=== PATIENT | male | born 1995 | race Caucasian/White ===

== ENCOUNTER 2018-07-26 14:22 | Emergency (ER) | payer OTHER ==
[~2018-07-26] VITALS: Ht 167.6 cm; Wt 63.0 kg
[~2018-07-26 14:22] MED LIST: PRED20TA PO
[2018-07-26] MEDS ORDERED: LORazepam 2 mg/ml vial IV ONE (14:50)
[2018-07-26] MEDS ORDERED: levetiracetam inj 1,000 MG in normal saline 100ml IV soln 90 ML IV ONE (14:55)
--- NOTE | 2018-07-26 15:00 | NUR ---
THIS AM DESTINY SAW PT HAVE A SEIZURE AT 0830 IN BED, CONFUSED TRYING TO GET UP, FOAMING FROM MOUTH, POSDICAL 20MINUTES, INCONTINENT OF URINE.
--- NOTE | 2018-07-26 15:02 | NUR ---
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
[2018-07-26 15:20] LABS: BASOPHILS % (AUTO) 0.2 % (0-1); EOSINOPHILS % (AUTO) 0.1 % (0-6); HEMOGLOBIN 14.6 g/dl (14.0-17.9); LYMPHOCYTES % (AUTO) 6.3 % (21-51); MEAN CORPUSCULAR HEMOGLOBIN 30.3 PG (27.0-31.0); MEAN PLATELET VOLUME 7.7 FL (7.4-10.4); MONOCYTES # (AUTO) 1.3 X10'3 (0-0.9); MONOCYTES % (AUTO) 7.8 % (2-12); NEUTROPHILS % (AUTO) 85.6 % (42-75); PLATELET COUNT 312 X10'3 (140-440); RED BLOOD COUNT 4.84 X10'6 (4.70-6.10); RED CELL DISTRIBUTION WIDTH 12.1 % (11.5-14.5); WHITE BLOOD COUNT 16.4 X10'3 (4.5-11.0)
[2018-07-26 15:34] LABS: ALANINE AMINOTRANSFERASE 23 U/L (12-78); ALBUMIN 4.1 G/DL (3.4-5.0); ALKALINE PHOSPHATASE 68 IU/L (46-116); ANION GAP 13 (8-16); ASPARTATE AMINO TRANSFERASE 23 U/L (10-37); BILIRUBIN,TOTAL 0.3 MG/DL (0.1-1.0); BLOOD UREA NITROGEN 16 MG/DL (7-18); BUN/CREATININE RATIO 9.6 (5.4-32.0); CALCIUM 9.1 MG/DL (8.5-10.1); CHLORIDE 100 MMOL/L (99-107); CREATININE 1.67 MG/DL (0.60-1.10); GLUCOSE 126 MG/DL (70-104); POTASSIUM 3.9 MMOL/L (3.5-5.1); SODIUM 136 MMOL/L (135-145); TOTAL CARBON DIOXIDE 22.8 MMOL/L (24-32); TOTAL PROTEIN 8.1 G/DL (6.4-8.2); eGFR 51 ML/MIN
[2018-07-26] MEDS ORDERED: normal saline 1000ML IV soln IVB ONE (15:50)
[2018-07-26 16:09] VITALS: BP 121/83
[2018-07-26] MEDS ORDERED: KEP500T PO (16:36)
[2018-07-26 17:11] LABS: CLARITY,URINE CLEAR (Clear); COLOR,URINE YELLOW (Yellow); GLUCOSE, URINE NEGATIVE (Neg); KETONES,URINE 15 mg/dl (Neg); LEUKOCYTE ESTERASE ,URINE NEGATIVE (Neg); NITRITES, URINE NEGATIVE (Neg); OCCULT BLOOD,URINE MODERATE (Neg); PROTEIN,URINE TRACE mg/dl (Neg); UROBILINOGEN,URINE 0.2 E.U/dL (0.2-1.0)
[2018-07-26 17:12] LABS: UA COLLECTION TYPE VOIDED
[2018-07-26 17:18] LABS: BACTERIA,URINE NONE SEEN /HPF (Neg); MUCUS STRANDS FEW /LPF (Neg); RBC,URINE 0-2 /HPF (0-2); SQUAMOUS EPITHELIAL CELL,UR FEW /LPF (FEW); WBC,URINE 0-4 /HPF (0-4)
[2018-07-26 17:24] LABS: URINE AMPHETAMINE SCREEN NEGATIVE (Neg); URINE BARBITUATE SCREEN NEGATIVE (Neg); URINE BENZODIAZEPINES SCREEN NEGATIVE (Neg); URINE CANNABINOID SCREEN POSITIVE (Neg); URINE COCAINE SCREEN NEGATIVE (Neg); URINE METHADONE SCREEN NEGATIVE (Neg); URINE OPIATE SCREEN NEGATIVE (Neg); URINE PHENCYCLIDINE SCREEN NEGATIVE (Neg)
== END 2018-07-26 17:01 | disposition home or self-care (01) ==
LOC: ER 14:23
DX: G40.909 Epilepsy, unspecified, not intractable, without status epilepticus (principal); F12.90 Cannabis use, unspecified, uncomplicated; Z79.899 Other long term (current) drug therapy; Z56.0 Unemployment, unspecified
CPT/HCPCS: 36415; 70450; 80053; 80305; 81001; 85025; 96365; 96375; 99284; J1953; J2060; J7030

== ENCOUNTER 2018-08-24 10:27 | Emergency (ER) | payer OTHER ==
[~2018-08-24] VITALS: Ht 177.8 cm; Wt 80.0 kg
[~2018-08-24 10:27] MED LIST changes: +KEP500T PO
[2018-08-24] MEDS ORDERED: normal saline 1000ML IV soln IVB ONE (10:40)
[2018-08-24 10:58] LABS: EOSINOPHILS # (AUTO) 0.1 X10'3 (0-0.9); MEAN CORPUSCULAR HEMOGLOBIN 30.5 PG (27.0-31.0)
[2018-08-24 11:03] VITALS: BP 166/81
[2018-08-24 11:08] LABS: ALANINE AMINOTRANSFERASE 18 U/L (12-78); ALBUMIN 4.7 G/DL (3.4-5.0); ALKALINE PHOSPHATASE 96 IU/L (46-116); ANION GAP 30 (8-16); ASPARTATE AMINO TRANSFERASE 24 U/L (10-37); BILIRUBIN,TOTAL 0.1 MG/DL (0.1-1.0); BLOOD UREA NITROGEN 19 MG/DL (7-18); BUN/CREATININE RATIO 14.4 (5.4-32.0); CALCIUM 9.6 MG/DL (8.5-10.1); CHLORIDE 104 MMOL/L (99-107); CREATININE 1.32 MG/DL (0.60-1.10); GLUCOSE 229 MG/DL (70-104); SODIUM 144 MMOL/L (135-145); TOTAL PROTEIN 9.2 G/DL (6.4-8.2); eGFR 67 ML/MIN
[2018-08-24 11:12] LABS: ETHANOL < 0.010 GM/DL (0.0-0.010); POTASSIUM 4.1 MMOL/L (3.5-5.1); TOTAL CARBON DIOXIDE 10.2 MMOL/L (24-32)
[2018-08-24 11:15] LABS: BASOPHILS # (AUTO) 0.3 X10'3 (0-0.2); BASOPHILS % (AUTO) 1.4 % (0-1); EOSINOPHILS % (AUTO) 0.5 % (0-6); HEMATOCRIT 50.2 % (42.0-52.0); HEMOGLOBIN 16.5 g/dl (14.0-17.9); LYMPHOCYTES # (AUTO) 2.9 X10'3 (1.1-4.8); LYMPHOCYTES % (AUTO) 12.7 % (21-51); MEAN CORPUSCULAR HGB CONC 32.8 g/dL (33.0-36.5); MEAN CORPUSCULAR VOLUME 92.9 FL (78-98); MEAN PLATELET VOLUME 8.8 FL (7.4-10.4); MONOCYTES # (AUTO) 1.2 X10'3 (0-0.9); NEUTROPHILS # (AUTO) 18.6 X10'3 (1.8-7.7); NEUTROPHILS % (AUTO) 80.4 % (42-75); PLATELET COUNT 412 X10'3 (140-440); RED CELL DISTRIBUTION WIDTH 11.8 % (11.5-14.5); WHITE BLOOD COUNT 23.1 X10'3 (4.5-11.0)
[2018-08-24 11:16] LABS: URINE AMPHETAMINE SCREEN NEGATIVE (Neg); URINE BARBITUATE SCREEN NEGATIVE (Neg); URINE BENZODIAZEPINES SCREEN NEGATIVE (Neg); URINE CANNABINOID SCREEN POSITIVE (Neg); URINE COCAINE SCREEN NEGATIVE (Neg); URINE METHADONE SCREEN NEGATIVE (Neg); URINE OPIATE SCREEN NEGATIVE (Neg); URINE PHENCYCLIDINE SCREEN NEGATIVE (Neg)
[2018-08-24] MEDS ORDERED: levetiracetam 250mg tablet PO ONE (12:10)
[2018-08-24] MEDS ORDERED: KEP500T PO ×2 (12:24→12:27)
== END 2018-08-24 14:04 | disposition home or self-care (01) ==
LOC: ER 10:28
DX: G40.909 Epilepsy, unspecified, not intractable, without status epilepticus (principal); F12.90 Cannabis use, unspecified, uncomplicated; Z56.0 Unemployment, unspecified
CPT/HCPCS: 36415; 71045; 80053; 80305; 80320; 85025; 96360; 99284; J7030

== ENCOUNTER 2019-03-11 20:02 | Emergency (ER) | payer SELFPAY ==
[~2019-03-11] VITALS: Ht 175.3 cm; Wt 68.2 kg
[~2019-03-11 20:02] MED LIST changes: -KEP500T PO
[2019-03-11] MEDS ORDERED: LORazepam 2 mg/ml vial IM ONE (20:45)
--- NOTE | 2019-03-11 20:47 | NUR ---
PT PULLED HIS IV OUT, DR FRY AT BEDSIDE. DR GR NOTIFIED OF PT PULLINGOUT IV, PER DR FRY IV NOT NEEDED AT THIS TIME.
[2019-03-11 20:52] LABS: BASOPHILS % (AUTO) 0.1 % (0-1); EOSINOPHILS # (AUTO) 0.1 X10'3 (0-0.9); EOSINOPHILS % (AUTO) 0.3 % (0-6); HEMATOCRIT 42.7 % (42.0-52.0); HEMOGLOBIN 14.4 g/dl (14.0-17.9); LYMPHOCYTES # (AUTO) 0.6 X10'3 (1.1-4.8); LYMPHOCYTES % (AUTO) 2.7 % (21-51); MEAN CORPUSCULAR HEMOGLOBIN 30.2 PG (27.0-31.0); MEAN CORPUSCULAR HGB CONC 33.7 g/dL (33.0-36.5); MEAN CORPUSCULAR VOLUME 89.7 FL (78-98); MEAN PLATELET VOLUME 7.9 FL (7.4-10.4); MONOCYTES # (AUTO) 1.1 X10'3 (0-0.9); MONOCYTES % (AUTO) 5.2 % (2-12); NEUTROPHILS # (AUTO) 19.8 X10'3 (1.8-7.7); NEUTROPHILS % (AUTO) 91.7 % (42-75); PLATELET COUNT 321 X10'3 (140-440); RED BLOOD COUNT 4.77 X10'6 (4.70-6.10); RED CELL DISTRIBUTION WIDTH 13.8 % (11.5-14.5); WHITE BLOOD COUNT 21.6 X10'3 (4.5-11.0)
[2019-03-11 21:02] LABS: ALANINE AMINOTRANSFERASE 17 U/L (12-78); ALBUMIN 4.4 G/DL (3.4-5.0); ALBUMIN/GLOBULIN RATIO 1.1 (1.1-1.5); ALKALINE PHOSPHATASE 77 IU/L (46-116); ANION GAP 14 (8-16); ASPARTATE AMINO TRANSFERASE 21 U/L (10-37); BILIRUBIN,TOTAL 0.3 MG/DL (0.1-1.0); BLOOD UREA NITROGEN 17 MG/DL (7-18); BUN/CREATININE RATIO 11.3 (5.4-32.0); CALCIUM 9.2 MG/DL (8.5-10.1); CHLORIDE 103 MMOL/L (99-107); GLUCOSE 112 MG/DL (70-104); POTASSIUM 3.9 MMOL/L (3.5-5.1); SODIUM 139 MMOL/L (135-145); TOTAL CARBON DIOXIDE 21.7 MMOL/L (24-32); TOTAL PROTEIN 8.4 G/DL (6.4-8.2); eGFR 57 ML/MIN
--- NOTE | 2019-03-11 21:04 | NUR ---
JASS PT'S MOTHER [phone]
[2019-03-11 21:05] LABS: ETHANOL < 0.010 GM/DL (0.0-0.010)
--- NOTE | 2019-03-11 21:09 | NUR ---
CT CAME TO PICK PT UP, PT IS STILL NON COOPERATIVE. CT AGREED TO COME BACK IN 15-20 MINUTES.
[2019-03-11 22:05] LABS: CLARITY,URINE CLEAR (Clear); COLOR,URINE YELLOW (Yellow); GLUCOSE, URINE NEGATIVE (Neg); KETONES,URINE TRACE mg/dl (Neg); LEUKOCYTE ESTERASE ,URINE NEGATIVE (Neg); NITRITES, URINE NEGATIVE (Neg); OCCULT BLOOD,URINE SMALL (Neg); PH,URINE 5.5 (4.8-8.0); PROTEIN,URINE NEGATIVE (Neg); UROBILINOGEN,URINE 0.2 E.U/dL (0.2-1.0)
[2019-03-11 22:10] LABS: UA COLLECTION TYPE CLN CATCH MIDSTREAM
[2019-03-11 22:12] LABS: BACTERIA,URINE NONE SEEN /HPF (Neg); MUCUS STRANDS NONE SEEN /LPF (Neg); RBC,URINE NONE SEEN /HPF (0-2); SQUAMOUS EPITHELIAL CELL,UR NONE SEEN /LPF (FEW); WBC,URINE NONE SEEN /HPF (0-4)
[2019-03-11 22:14] LABS: URIC ACID CRYSTALS 3+ /HPF (NEGATIVE)
[2019-03-11] MEDS ORDERED: KEP500T PO (22:21)
[2019-03-11 22:23] LABS: URINE AMPHETAMINE SCREEN NEGATIVE (Neg); URINE BARBITUATE SCREEN NEGATIVE (Neg); URINE BENZODIAZEPINES SCREEN NEGATIVE (Neg); URINE CANNABINOID SCREEN POSITIVE (Neg); URINE COCAINE SCREEN NEGATIVE (Neg); URINE METHADONE SCREEN NEGATIVE (Neg); URINE OPIATE SCREEN NEGATIVE (Neg); URINE PHENCYCLIDINE SCREEN NEGATIVE (Neg)
[2019-03-11] MEDS ORDERED: levetiracetam 250mg tablet PO ONE (22:25)
[2019-03-11 23:08] VITALS: BP 128/72
== END 2019-03-11 23:11 | disposition home or self-care (01) ==
LOC: ER 20:03
DX: R56.9 Unspecified convulsions (principal); S00.83XA Contusion of other part of head, initial encounter; F12.90 Cannabis use, unspecified, uncomplicated; Z56.0 Unemployment, unspecified; Z91.14 Patient's other noncompliance with medication regimen; Z79.899 Other long term (current) drug therapy; X58.XXXA Exposure to other specified factors, initial encounter; Y93.89 Activity, other specified; Y92.89 Other specified places as the place of occurrence of the external cause; Y99.9 Unspecified external cause status
CPT/HCPCS: 36415; 70450; 80053; 80305; 80320; 81001; 85025; 96372; 99284; J2060

== ENCOUNTER 2019-04-21 00:07 | Emergency (ER) | payer OTHER ==
[~2019-04-21] VITALS: Ht 180.3 cm; Wt 72.0 kg
[~2019-04-21 00:07] MED LIST changes: +KEP500T PO
[2019-04-21] MEDS ORDERED: LORazepam 2 mg/ml vial IV ONE (00:55)
[2019-04-21] MEDS ORDERED: normal saline 1000ML IV soln IVB ONE (01:25)
[2019-04-21 01:36] LABS: BASOPHILS % (AUTO) 0.1 % (0-1); EOSINOPHILS % (AUTO) 0.1 % (0-6); HEMATOCRIT 45.7 % (42.0-52.0); HEMOGLOBIN 15.3 g/dl (14.0-17.9); LYMPHOCYTES % (AUTO) 7.5 % (21-51); MEAN CORPUSCULAR HEMOGLOBIN 30.5 PG (27.0-31.0); MEAN CORPUSCULAR HGB CONC 33.4 g/dL (33.0-36.5); MEAN CORPUSCULAR VOLUME 91.4 FL (78-98); MEAN PLATELET VOLUME 7.8 FL (7.4-10.4); MONOCYTES # (AUTO) 1.7 X10'3 (0-0.9); MONOCYTES % (AUTO) 6.2 % (2-12); NEUTROPHILS # (AUTO) 22.9 X10'3 (1.8-7.7); NEUTROPHILS % (AUTO) 86.1 % (42-75); PLATELET COUNT 400 X10'3 (140-440); RED CELL DISTRIBUTION WIDTH 13.1 % (11.5-14.5)
[2019-04-21 01:39] LABS: WHITE BLOOD COUNT 26.6 X10'3 (4.5-11.0)
[2019-04-21 01:40] LABS: ALANINE AMINOTRANSFERASE 21 U/L (12-78); ALBUMIN 4.4 G/DL (3.4-5.0); ALBUMIN/GLOBULIN RATIO 0.9 (1.1-1.5); ALKALINE PHOSPHATASE 95 IU/L (46-116); ANION GAP 23 (8-16); ASPARTATE AMINO TRANSFERASE 19 U/L (10-37); BILIRUBIN,TOTAL 0.2 MG/DL (0.1-1.0); BLOOD UREA NITROGEN 17 MG/DL (7-18); BUN/CREATININE RATIO 9.9 (5.4-32.0); CHLORIDE 99 MMOL/L (99-107); CREATININE 1.72 MG/DL (0.60-1.10); ETHANOL < 0.010 GM/DL (0.0-0.010); GLUCOSE 175 MG/DL (70-104); POTASSIUM 4.3 MMOL/L (3.5-5.1); SODIUM 137 MMOL/L (135-145); TOTAL CARBON DIOXIDE 15.4 MMOL/L (24-32); TOTAL PROTEIN 9.4 G/DL (6.4-8.2); eGFR 49 ML/MIN
[2019-04-21 01:49] LABS: ACETAMINOPHEN < 2.0 UG/ML (10-30)
[2019-04-21 01:49] LABS: URINE AMPHETAMINE SCREEN NEGATIVE (Neg); URINE BARBITUATE SCREEN NEGATIVE (Neg); URINE BENZODIAZEPINES SCREEN NEGATIVE (Neg); URINE CANNABINOID SCREEN POSITIVE (Neg); URINE COCAINE SCREEN NEGATIVE (Neg); URINE METHADONE SCREEN NEGATIVE (Neg); URINE OPIATE SCREEN NEGATIVE (Neg); URINE PHENCYCLIDINE SCREEN NEGATIVE (Neg)
--- NOTE | 2019-04-21 01:49 | NUR ---
lab at bedside for draw
[2019-04-21 01:54] LABS: TOTAL CELLS COUNTED 100
[2019-04-21 01:55] LABS: PLATELET ESTIMATE NORMAL
--- NOTE | 2019-04-21 03:55 | NUR ---
Patient up for discharge, provided mother's phone number for ride, no answer, patient states "she doesn't wake up until 5". Patient unable to provide other names/numbers for ride.
--- NOTE | 2019-04-21 05:15 | NUR ---
Again attempted to contact patient's mother for ride home. Patient continues to state he does not have anyone else he can call.
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
[2019-04-21 08:26] VITALS: BP 112/62
== END 2019-04-21 08:42 | disposition home or self-care (01) ==
LOC: ER 00:08
DX: R56.9 Unspecified convulsions (principal); R11.10 Vomiting, unspecified; R41.82 Altered mental status, unspecified; R45.1 Restlessness and agitation; F12.90 Cannabis use, unspecified, uncomplicated; F10.99 Alcohol use, unspecified with unspecified alcohol-induced disorder; Z56.0 Unemployment, unspecified; Z79.899 Other long term (current) drug therapy; Y90.0 Blood alcohol level of less than 20 mg/100 ml
CPT/HCPCS: 36415; 80053; 80305; 80320; 80329; 82948; 83605; 85025; 87040; 96361; 96374; 99284; J2060; J7030

== ENCOUNTER 2019-05-22 09:18 | Emergency (ER) | payer OTHER ==
[~2019-05-22] VITALS: Ht 182.9 cm; Wt 72.7 kg
--- NOTE | 2019-05-22 09:53 | NUR ---
PLACED LAB FOR [facility]EPPRA LEVEL FOR PT PER DR ECKERT. LAB CALLED STATING THE LAB IS A SEND OUT LAB. DR ECKERT NOTIFIED AND CANCELED ORDER. ORDER CANCELED. WILL CONTINUE TO MONITOR
--- NOTE | 2019-05-22 10:00 | NUR ---
RELIEVING PRIMARY RN NEGAR FOR BREAK, PATIENT HAD PULLED OFF ALL MONITORING EQUIPTMENT. I PLACED THE BP CUFF, SPO2 AND 5 LEAD AND PATIENT PROCEEDED TO HAVE A TONIC CLONIC SEIZURE. O2 VIA NC AT 6 LITERS PLACED AND MOUTH SUCTIONED: FROTHY WHITE SPUTUM, SEIZURE PADS WERE IN PLACE, RADIOED FOR DR ECKERT AND FOR ATIVAN.
[2019-05-22] MEDS ORDERED: LORazepam 2 mg/ml vial ONE (10:04)
--- NOTE | 2019-05-22 10:05 | NUR ---
ATIVAN VIAL PULLED BY MODE CUMMINS AND VERBAL ORDER FROM DR ECKERT TO GIVE 1 MG IV ATIVAN NOW AND 1 MG ATIVAN IV GIVEN VIA LEFT FOREARM PIV. AFTER ATIVAN GIVEN, PATIENTS TONIC CLONIC SEIZURE STOPPED. PATIENT ON 6 LITERS NC WITH END TIDAL CO2 MONITORING = 30. SR, [employer] OPERATOR WNL
[2019-05-22] MEDS ORDERED: LORazepam 2 mg/ml vial IV ONE (10:30)
[2019-05-22] MEDS ORDERED: normal saline 1000ML IV soln IVB ONE (10:30)
[2019-05-22] MEDS ORDERED: ondansetron/PF 4mg/2ml inj IV ONE (10:30)
[2019-05-22 10:49] LABS: CLARITY,URINE CLEAR (Clear); COLOR,URINE YELLOW (Yellow); GLUCOSE, URINE NEGATIVE (Neg); KETONES,URINE NEGATIVE (Neg); LEUKOCYTE ESTERASE ,URINE NEGATIVE (Neg); NITRITES, URINE NEGATIVE (Neg); OCCULT BLOOD,URINE MODERATE (Neg); PH,URINE 5.5 (4.8-8.0); PROTEIN,URINE 100 mg/dl (Neg); UROBILINOGEN,URINE 0.2 E.U/dL (0.2-1.0)
[2019-05-22 10:54] LABS: UA COLLECTION TYPE STRAIGHT CATH
[2019-05-22 10:55] LABS: AMORPHOUS URATES 1+; BACTERIA,URINE NONE SEEN /HPF (Neg); MUCUS STRANDS FEW /LPF (Neg); RBC,URINE 0-2 /HPF (0-2); SQUAMOUS EPITHELIAL CELL,UR NONE SEEN /LPF (FEW); WBC,URINE NONE SEEN /HPF (0-4)
[2019-05-22 11:06] LABS: URINE AMPHETAMINE SCREEN NEGATIVE (Neg); URINE BARBITUATE SCREEN NEGATIVE (Neg); URINE BENZODIAZEPINES SCREEN NEGATIVE (Neg); URINE CANNABINOID SCREEN POSITIVE (Neg); URINE COCAINE SCREEN NEGATIVE (Neg); URINE METHADONE SCREEN NEGATIVE (Neg); URINE OPIATE SCREEN NEGATIVE (Neg); URINE PHENCYCLIDINE SCREEN NEGATIVE (Neg)
[2019-05-22] MEDS ORDERED: levetiracetam inj 500 MG in normal saline 100ml IV soln 95 ML IV SCH (11:17)
[2019-05-22 14:03] VITALS: BP 125/56
== END 2019-05-22 14:05 | disposition home or self-care (01) ==
LOC: ER 09:19
DX: R56.9 Unspecified convulsions (principal); F12.90 Cannabis use, unspecified, uncomplicated; R41.82 Altered mental status, unspecified; Z79.899 Other long term (current) drug therapy
CPT/HCPCS: 36415; 80305; 80320; 81001; 82948; 96365; 96375; 99284; J1953; J2060; J2405; J7030; 99283

== ENCOUNTER 2019-12-31 13:27 | Emergency (ER) | payer MEDICAID, OTHER ==
[~2019-12-31] VITALS: Ht 177.8 cm; Wt 72.7 kg
[2019-12-31 13:34] VITALS: BP 127/87
[2019-12-31] MEDS ORDERED: IBUP-1984 PO (16:32)
[2019-12-31] MEDS ORDERED: CEPH250T PO (16:32)
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
== END 2019-12-31 16:52 | disposition home or self-care (01) ==
LOC: ER 13:27
DX: S50.311A Abrasion of right elbow, initial encounter (principal); S50.312A Abrasion of left elbow, initial encounter; F12.90 Cannabis use, unspecified, uncomplicated; Z86.69 Personal history of other diseases of the nervous system and sense organs; Z72.89 Other problems related to lifestyle; Z56.0 Unemployment, unspecified; Z79.899 Other long term (current) drug therapy; Y09 Assault by unspecified means; Y93.89 Activity, other specified; Y92.89 Other specified places as the place of occurrence of the external cause; Y99.8 Other external cause status
CPT/HCPCS: 70450; 70486; 73080; 99285

== ENCOUNTER 2021-09-22 19:28 | Emergency (ER) | payer MEDICAID, OTHER ==
[~2021-09-22] VITALS: Ht 177.8 cm; Wt 65.9 kg
[2021-09-22 19:38] VITALS: BP 126/72
[2021-09-22] MEDS ORDERED: ketorolac trometh inj. 60 MG/2 ML VIAL IM ONE (19:45)
== END 2021-09-22 20:09 | disposition home or self-care (01) ==
LOC: ER 19:29
DX: R52 Pain, unspecified (principal); F12.90 Cannabis use, unspecified, uncomplicated; Z86.69 Personal history of other diseases of the nervous system and sense organs; Z72.89 Other problems related to lifestyle; Z56.0 Unemployment, unspecified; Z79.899 Other long term (current) drug therapy
CPT/HCPCS: 96372; 99283; J1885

== ENCOUNTER 2021-12-28 16:32 | Emergency (ER) | payer MEDICAID ==
[~2021-12-28] VITALS: Ht 177.8 cm; Wt 65.9 kg
[2021-12-28] MEDS ORDERED: ondansetron 4mg rapidly disintigrating tab PO ONE (18:20)
[2021-12-28] MEDS ORDERED: HYDROcodone/acetaminophen 5mg/325mg tablet PO ONE (18:20)
[2021-12-28] MEDS ORDERED: ketorolac tromethamine 15mg/ml inj. IM ONE (18:20)
[2021-12-28 21:47] VITALS: BP 132/68
[2021-12-28] MEDS ORDERED: IBUP-1984 PO (21:59)
== END 2021-12-28 22:48 | disposition home or self-care (01) ==
LOC: ER 16:32
DX: M25.561 Pain in right knee (principal); M79.651 Pain in right thigh; W19.XXXA Unspecified fall, initial encounter; Y93.89 Activity, other specified; Y92.89 Other specified places as the place of occurrence of the external cause; Y99.8 Other external cause status
CPT/HCPCS: 29505; 73552; 73560; 73590; 73700; 96372; 99284; J1885; 29530